=== PATIENT | female | born 1990 | race Caucasian/White ===

== ENCOUNTER 2023-07-08 09:25 | Outpatient (CLI) | payer OTHER, SELFPAY | END 2023-07-08 09:26 | disposition home or self-care (01) | PROVIDERS: PCP Family Medicine; Visit Provider Family Medicine | DX: Z00.00 Encounter for general adult medical examination without abnormal findings (principal); Z13.6 Encounter for screening for cardiovascular disorders; Z13.1 Encounter for screening for diabetes mellitus | CPT/HCPCS: 80061; 82947 ==

== ENCOUNTER 2024-02-17 15:14 | Outpatient (CLI) | payer OTHER, SELFPAY ==
--- OUTSIDE RECORDS SUMMARY | 2024-02-17 15:16 | XMS_ITS | Clinical Summary ---
Author Organization [facility] Address [place], [place] [address] Care Team Providers Care Client Support Associate Name Role Phone Maeve May DO Primary Care Provider + Allergies Active Allergy Reactions Criticality Noted Date Comments Sulfa (Sulfonamide Antibiotics) Dizziness 02/15 hypoglycemia Medications Medication Sig Dispensed Refills Start Date End Date Status fluticasone (50 mcg per actuation) nasal solution (FLONASE) Inhale 2 Sprays to both nostrils once daily. 1 Bottle 08/08/2020 Active fexofenadine (BELA) 180 mg tablet Take 180 mg by mouth once daily. Do not crush or chew. 0 08/08/2020 Active albuterol HFA (Ventolin HFA) 90 mcg/actuation inhalerIndications:Mi ld intermittent asthma without complication Inhale 2 Puffs by mouth 4 times daily if needed for Shortness Of Breath. 18 g 2 01/13/2022 Active SUMAtriptan (IMITREX) 50 mg tabletIndications:Mumtaz kalyn syndrome Take one tablet at onset of headache. May repeat in 2 hours if needed 10 Tablet 3 11/20/2022 Active dextroamphetamine-amp hetamine (AdderalL) 10 mg tabletIndications:Att ention deficit hyperactivity disorder (ADHD), unspecified ADHD type Take 1 Tablet (10 mg) by mouth 2 times daily at 7 AM and Noon. 60 Tablet 09/01/2023 Active Active Problems Problem Noted Date Diagnosed Date Migraine syndrome 11/20/2022 Attention deficit disorder 11/20/2022 Mild intermittent asthma with acute exacerbation 11/20/2022 Hx of renal calculi 06/19/2022 CIS (carcinoma in situ of cervix) 05/17/2006 Overview (09/16/2020): 2007 CIS ASCCP recommends fdc follow-up after high-grade histology or cytology: Continued surveillance at 3 year intervals is recommended for at least 25 years after treatment of high-grade histology (MARICARMEN 2, 3, CIS or AIS) or high-grade cytology (HSIL, AGC, ASC-H, LSIL, Cannot exclude HSIL) even if beyond age 65. Plan: Pap/HPV due 08/2023 Immunizations Name Administration Dates Next Due COVID-19 vaccine (Capeco 30mcg/0.3mL) PF, MDV 09/13/2020 DTaP 09/05/1991, 0,1988,1988 Influenza Virus, Unspecified 04/05/2020,03/15/20 18,02/23/2017 Influenza, IIV4 02/10/2023,02/06/2022,04/05/2020 Influenza, IIV4 (=>6mos) MDV 02/10/2021 MMR 11/25/1993,09/21/1989 Polio Virus, Unspecified 01/02/2013,07/16,06/22/1990,1988 Td (Age >=7 Years) 09/23/2012,10/19/2003 Tdap 12/10/2020 Tuberculin Skin Test, Unspecified 10/28/2020 Family History Medical History Relation Name Comments Celiac disease Father AVM Mother COPD Mother Cancer-breast Paternal Grandmother 50s, B RCA neg No Known Problems Sister liver dise ase / cardiomyopathy Relation Name Status Comments Father Alive Mother Alive Other 1 Other no OPERATIONS SUPERVISOR malignan cy except above 08/2020 Other 2 Other uterine myoma, hysterectomy for multiple aunts Paternal Grandmother Sister Social History Tobacco Use Types Packs/Day Years Used Date Smoking Tobacco: Never Smokeless Tobacco: Never Tobacco Cessation:Counseling Given: Not Answered Alcohol Use Standard Drinks/Week Comments Yes 0 (1 standard drink = 0.6 oz pur e alcohol) rarely PHQ-2 Answer Date Recorded PHQ-2 TOTAL SCORE 0 11/20/2022 Social Connections Answer Date Recorded Frequency of Communication with Friends and Fami ly Not on file 05/17/2021 Alcohol Use Answer Date Recorded How often do you have a drink containing alcohol ? 1 04/15/2022 How many drinks containing a lcohol do you have on a typical day when you are drinking? 0 04/15/2022 How often do you have five or more drinks on one occasion? 0 04/15/2022 Financial Resource Strain Answer Date R ecorded Difficulty of Paying Living Expenses Not on file 05/17/2021 Difficulty of Paying Living Expenses Not on file 05/17/2021 Sex and Gender Information Value Date Recorded Sex Assigned at Not on file Gender Identity Not on file Sexual Orientation Not on file Obstetrics History Para Term AB IAB SAB Ectopic Multiple Livin g Live Births 0 0 0 0 0 0 0 0 0 0 0 Last Filed Vital Signs Vital Sign Reading Time Taken Comments Blood Pressure 110/80 06/19/2022 9:40 AM NURSE'S AIDES TEACHER Pulse 80 06/19/2022 9:40 AM NURSE'S AIDES TEACHER Temperature 37.5 ??C (99.5 ??F) 09/21/2021 12:36 PM C DT Respiratory Rate 12 09/21/2021 12:36 PM CDT Oxygen Saturation 97% 09/21/2021 12:36 PM CDT Inhaled Oxygen Concentration - - Weight 73.5 kg (162 lb) 06/19/2022 9:40 AM NURSE'S AIDES TEACHER Height 167.6 cm (5' 6) 06/19/2022 9:40 AM NURSE'S AIDES TEACHER Body Mass Index 26.15 06/19/2022 9:40 AM NURSE'S AIDES TEACHER Plan of Treatment Health Maintenance Due Date Last Done Comments HIV for age 15-65 01/08/2003 Hepatitis C screening for age 18-79 01/08/2006 BMI (ht and wt on same day) for age 18+ 06/19/2023 06/19/2022, 04/15/2021, 09/09/2020, Additional history exists Pap test for age 21-65 08/30/2023 08/29/2020, 2020 Depression screening for age 12+ 11/21/2023 11/20/2022, 10/27/2021, 08/08/2020 COVID-19 vaccine series ( season) 2024 10/02/2020, 09/13/2020 Influenza for age 9-49 01/16/2024 3, 02/06/2022, 02/10/2021, Additional history exists Tetanus booster 12/10/2030 12/10/2020, 05/, 10/19/2003 Tdap Completed 12/10/2020 Pneumococcal series for age 6-64 Aged Out No longer eligible based on patient's age to complete this topic Procedures Procedure Name Priority Date/Time Associated Diagnosis Comments OPERATIONS SUPERVISOR THIN PREP PAP SCREEN IMAGED Routine 08/29/2020 2:00 PM CDT Cervical cancer screening from Last 3 Months or Most Recently Relevant to Health Maintenance Results * OPERATIONS SUPERVISOR THIN PREP PAP SCREEN IMAGED (08/29/2020 2:00 PM CDT) Case Report Gynecologic Cytology Report ? Case: [id number] ? Authorizing Provider: ??Maureen Vaughn MD ?? Collected: ? 08/29/2020 1400 ? Ordering Location: ? [facility] Received: ?08/29/2020 1522 ? First Screen: ?Russ Yoder ? Specimen: ?OPERATIONS SUPERVISOR ThinPrep Vial Screening, Cervical ? 09/09/2020 3:40 PM CDT [facility] INTERPRETATION/ RESULT NEGATIVE FOR INTRAEPITHELIAL LESION OR MALIGNANCY (NIL) (none) 09/09/2020 3:40 PM CDT [facility] IMEN ADEQUACY Satisfactory for evaluation Endocervical component present 09/09/2020 3:40 PM CDT [facility] HPV REQUEST HPV and PAP 09/09/2020 3:40 PM CDT [facility] Date of LMP 08/03/2020 09/09/2020 3:40 PM CDT [facility] Last Pap Date unknown 09/09/2020 3:40 PM CDT [facility] Last Pap Result First Pap/Unknown 3:40 PM CDT [facility] Abnormal Pap or [place] Bx in last 5 years No 09/09/2020 3:40 PM CDT [facility] Menstrual Status Regular Periods 09/09/2020 3:40 PM CDT [facility] [place] Bx Done Today No 09/09/2020 3:40 PM CDT [facility] Additional Information None given 09/09/2020 3:40 PM CDT [facility] Comment: Cytology is screened at [facility] - [address], [place] [address] and [facility] - [address], [place] [address] and [facility] - [address] [place] [address] Interpreted at [facility] - [address], [place] [address] Automated Review Successful 09/09/2020 3:40 PM CDT [facility] Comment:Specimen processed s uccessfully by automated medical anthropologist device, ThinPrep Imaging System, [employer] ANCILLARY TESTING OPERATIONS SUPERVISOR HPV Ordered, Please see separate report 09/09/2020 3:40 PM CDT [facility] Note The pap test is a screening technique, not a diagnostic procedure. It is used primarily to screen for squamous cancers and precursor lesions. Published studies have shown that it is subject to both false negative and false positive results. The pap test should not be used as the sole means to diagnose or exclude pre-malignant and malignant lesions. 09/09/2020 3:40 PM CDT [facility] Other (Cervical) Non-Blood / Unknown 08/29/2020 2:00 PM CDT 08/29/2020 3:22 PM CDT Maureen Vaughn MD PATHOLOGY/CYTOLOG Y [facility] [address] [place] [address], from Last 3 Months or Most Recently Relevant to Health Maintenance Care Teams Client Support Associate Relationship Specialty Start Date End Date Maeve May DO [address] [place] [address] PCP - General Family Practice 08/20/22
--- OUTSIDE RECORDS SUMMARY | 2024-02-17 15:16 | XMS_ITS | Referral Summary ---
Author Organization [facility] Address [address] [place] [address] Care Team Providers Care Account Strategist Name Role Phone Rigo Vernon MD Primary Care Provider [phone] Allergies Active Allergy Reactions Criticality Noted Date Comments Sulfa Antibiotics Other (See Comments) 09/28/19 24 Hypoglycemic Medications Medication Sig Dispensed Refills Start Date End Date Status predniSONE (DELTASONE) 20 MG tablet Take two tablets (= 40mg) each day for 5 (five) days 10 tablet 09/28/2023 Active Social History Tobacco Use Types Packs/Day Years Used Date Smoking Tobacco: Never Assessed Adolescent Education Answer Date Record ed Getting School Help Needed Not on file 02/06 Sex and Gender Information Value Date Recorded Sex Assigned at Not on file Gender Identity Not on file Sexual Orientation Not on file Last Filed Vital Signs Vital Sign Reading Time Taken Comments Blood Pressure 112/84 09/28/2023 11:00 AM CDT Pulse 71 09/28/2023 11:00 AM CDT Temperature 36.8 ??C (98.2 ??F) 09/28/2023 9:42 AM CD T Respiratory Rate 20 09/28/2023 9:42 AM CDT Oxygen Saturation 98% 09/28/2023 11:00 AM CDT Inhaled Oxygen Concentration - - Weight 71.9 kg (158 lb 8.2 oz) 09/28/2023 9:42 A M CDT Height 167.6 cm (5' 6) 09/28/2023 9:42 AM CDT Body Mass Index 25.58 09/28/2023 9:42 AM CDT Plan of Treatment Not on file Care Teams Account Strategist Relationship Specialty Start Date End Date Rigo Vernon MD [facility] & [address] [address] PCP - General Family Medicine 09/28/23
--- OUTSIDE RECORDS SUMMARY | 2024-02-17 15:16 | XMS_ITS | Clinical Summary ---
Author Organization [facility] Address [address] [place] [address] Care Team Providers Care Offbearer Sewer Pipe Name Role Phone Rigo Vernon MD Primary Care Provider [phone] Allergies Active Allergy Reactions Criticality Noted Date [...] 09/28/2023 9:42 AM CDT Plan of Treatment Health Maintenance Due Date Last Done Comments ADVANCE CARE PLANNING 1988 ANNUAL REVIEW OF HM ORDERS 1988 ASTHMA ACTION PLAN 1988 ASTHMA CONTROL TEST 1988 GLUCOSE 1988 HIV SCREENING 01/08/2003 HEPATITIS C SCREENING 01/08/2006 HEPATITIS B IMMUNIZATION (1 of 3 - 19+ 3-dose series) 01/08/2007 PAP 01/08/2009 PHQ-2 (once per calendar year) 2023 YEARLY PREVENTIVE VISIT 06/19/2023 06/19/2022, 08/08 COVID-19 Vaccine (3 - season) 2024 10/02/2020, 09/13/2020 INFLUENZA VACCINE (#1) 2024 , 02/06/2022, 02/10/2021, Additional history exists Pneumococcal Vaccine: Pediatrics (0 to 5 Years) and At-Risk Patients (6 to 64 Years) (2 of 2 - PCV) 07/08/2024 07/08/2023 DTAP/TDAP/TD IMMUNIZATION (7 - Td or Tdap) 12/10/2030 12/10/2020, 09/23/2012, 10/19/2003, Additional history exists HPV IMMUNIZATION Aged Out No longer e ligible based on patient's age to complete this topic MENINGITIS IMMUNIZATION Aged Out No l onger eligible based on patient's age to complete this topic RSV MONOCLONAL ANTIBODY Aged Out No l onger eligible based on patient's age to complete this topic Care Teams Offbearer Sewer Pipe Relationship Specialty Start Date End Date Rigo Vernon MD [facility] [address] [place] [address] PCP - General Family Medicine 09/28/23
--- NOTE | 2024-02-17 15:30 | CRLHL7_ITS ---
For Patients: As a result of the Century Cures Act, medical imaging exams and procedure reports are released immediately into your electronic medical record. You may view this report before your referring provider. If you have questions, please contact your health care provider. Indication: Headaches. Family history of AVM. Technique: Noncontrast sagittal T1, axial FLAIR, T2, diffusion, post contrast T1 weighted sequences are provided. Compared to prior study from May 02, 2021. 20 cc of dotarem gadolinium was administered intravenously. Findings: The ventricles, sulci and gyri are normal size, shape and contour for age. The midline structures are centrally located with no evidence of shift. There are no suspicious intra or extra-axial fluid collections. No region of restricted diffusion or suspicious regions of abnormal parenchymal enhancement. Expected flow voids in the cavernous carotids and basilar artery. Impression: 1. Stable, no radiographic evidence of acute intracranial abnormalities. Dictated by Jason Freitas MD @ 02/21/2024 11:00:58 AM (Electronically Signed)
== END 2024-02-17 15:15 | disposition home or self-care (01) ==
LOC: MRI 15:14
PROVIDERS: PCP Family Medicine; Visit Provider Family Medicine
DX: G43.909 Migraine, unspecified, not intractable, without status migrainosus (principal)
CPT/HCPCS: 70553; A9575

== ENCOUNTER 2024-12-29 09:46 | Outpatient (CLI) | payer OTHER, SELFPAY ==
[2024-12-31 04:51] LABS: HPV Source Cervical
[2025-01-08 16:43] LABS: Pap Test Screened Manually Done
== END 2024-12-29 09:47 | disposition home or self-care (01) ==
PROVIDERS: PCP Family Medicine; Visit Provider Obstetrics & Gynecology
DX: N93.0 Postcoital and contact bleeding (principal); Z12.4 Encounter for screening for malignant neoplasm of cervix; Z11.51 Encounter for screening for human papillomavirus (HPV)
CPT/HCPCS: 87624; 87625; 88141; 88142; 88175

== ENCOUNTER 2025-01-17 10:03 | Outpatient (CLI) | payer OTHER, SELFPAY ==
--- NOTE | 2025-01-17 10:15 | CRLHL7_ITS ---
For Patients: As a result of the Century Cures Act, medical imaging exams and procedure reports are released immediately into your electronic medical record. You may view this report before your referring provider. If you have questions, please contact your health care provider. INDICATION: Dysmenorrhea and fertility issues COMPARISON: 09/25/2020 TECHNIQUE: 2D teague-scale and color Doppler images were acquired of the pelvis using a transabdominal and transvaginal approach. Transvaginal imaging performed to better visualize the endometrial stripe and ovaries. FINDINGS: Sonographic images demonstrate a normal size and smooth outer contour of the uterus. Uterus measures 7.7 cm in length by 3.5 cm in AP diameter by 5.0 cm in transverse dimension. Calcification within the lower uterine segment measures 4 x 3 millimeters. Endometrium measures 6.4 millimeters. Hyperechoic focus associated with the endometrium measures 6 x 3 x 3 millimeters. The right ovary measures 3.5 x 1.8 x 2.2 cm in size and the left ovary measures 2.5 x 1.6 x 1.4 cm. The ovaries demonstrate normal arterial and venous blood flow on color Doppler analysis. There are no suspicious fluid collections within the cul-de-sac. Collapsing right ovarian cyst is present which measures 14 x 12 x 12 millimeters. IMPRESSION: Endometrial thickness 6.4 millimeters with possible polyp measuring 6 x 3 x 3 millimeters. Dictated by Darryl Santizo MD @ 01/17/2025 11:49:42 AM (Electronically Signed)
== END 2025-01-17 10:04 | disposition home or self-care (01) ==
LOC: US 10:04
PROVIDERS: PCP Family Medicine; Visit Provider Obstetrics & Gynecology
DX: N94.6 Dysmenorrhea, unspecified (principal); R93.89 Abnormal findings on diagnostic imaging of other specified body structures; N93.0 Postcoital and contact bleeding
CPT/HCPCS: 76830; 76856

== ENCOUNTER 2025-01-21 17:38 | Outpatient (CLI) | payer OTHER, SELFPAY ==
[2025-01-21 19:34] LABS: Free T4 Free Thyroxine* 1.24 ng/dL (0.70-1.85)
[2025-01-23 13:39] LABS: Follicle Stimulating Hormone 7.1 IU/L
[2025-01-23 20:58] LABS: Estradiol Premenol Female 62 pg/mL
== END 2025-01-21 17:39 | disposition home or self-care (01) ==
LOC: LAB 17:41
PROVIDERS: PCP Family Medicine; Visit Provider Obstetrics & Gynecology
DX: N97.9 Female infertility, unspecified (principal)
CPT/HCPCS: 36415; 82670; 83001; 84146; 84439; 84443

== ENCOUNTER 2025-02-09 08:38 | Outpatient (CLI) | payer OTHER, SELFPAY | END 2025-02-09 08:39 | disposition home or self-care (01) | LOC: NFLDREF 02-17 02:59 | PROVIDERS: PCP Family Medicine; Referring Provider Family Medicine; Visit Provider Obstetrics & Gynecology | DX: N97.9 Female infertility, unspecified (principal) | CPT/HCPCS: 84144 ==